=== PATIENT | male | born 1985 | race Caucasian/White ===

== ENCOUNTER 2020-10-01 02:04 | Emergency (ER) | payer OTHER ==
[~2020-10-01] VITALS: Ht 170.2 cm; Wt 68.0 kg
[2020-10-01 03:02] VITALS: BP 133/83
== END 2020-10-01 04:55 | disposition home or self-care (01) ==
LOC: ER 02:04
PROVIDERS: Emergency Medicine
DX: U07.1 COVID-19 (principal); A56.8 Sexually transmitted chlamydial infection of other sites; R05 Cough; R50.9 Fever, unspecified